=== PATIENT | male | born 1975 | race Caucasian/White ===

== ENCOUNTER → 2020-08-31 13:07 | Outpatient (BNVA) | payer OTHER, SELFPAY | PROVIDERS: PCP Internal Medicine; Visit Provider Physician Assistant Medical | DX: S93.491A Sprain of other ligament of right ankle, initial encounter (principal); W01.0XXA Fall on same level from slipping, tripping and stumbling without subsequent striking against object, initial encounter | CPT/HCPCS: 73610; 99203 ==

== ENCOUNTER → 2020-09-04 07:54 | Outpatient (BNVA) | payer OTHER, SELFPAY | PROVIDERS: PCP Internal Medicine; Visit Provider Physician Assistant Medical | DX: S93.401A Sprain of unspecified ligament of right ankle, initial encounter (principal); S83.8X1A Sprain of other specified parts of right knee, initial encounter; X58.XXXA Exposure to other specified factors, initial encounter | CPT/HCPCS: 29515; 99213 ==

== ENCOUNTER → 2020-09-07 10:30 | Outpatient (BNVA) | payer OTHER, SELFPAY | PROVIDERS: Visit Provider Physician Assistant | DX: S93.401A Sprain of unspecified ligament of right ankle, initial encounter (principal) | CPT/HCPCS: 99202 ==

== ENCOUNTER 2020-10-09 09:53 | Outpatient (REF) | payer OTHER, SELFPAY ==
--- NOTE | ~2020-10-09 | XR_ITS ---
EXAMINATION: XR ANKLE, RIGHT CLINICAL INFORMATION: Right ankle sprain. COMPARISON: None TECHNIQUE: AP, lateral, and mortise views of the right ankle. FINDINGS: Small osteophytes are noted on the posterior calcaneus at the insertion of the plantar fascia and Achilles tendon. No fracture or other acute abnormality is demonstrated. No joint effusion is demonstrated. XR/XR ankle RT min 3V IMPRESSION: No acute abnormality.
== END 2020-10-09 09:54 | disposition home or self-care (01) ==
LOC: HO.XRAY 09:53
PROVIDERS: Visit Provider Physician Assistant
DX: S93.401D Sprain of unspecified ligament of right ankle, subsequent encounter (principal)
CPT/HCPCS: 73610; 99212

== ENCOUNTER → 2021-03-25 08:58 | Outpatient (BNVA) | payer OTHER, SELFPAY | PROVIDERS: Visit Provider Internal Medicine | DX: H54.511A Low vision right eye category 1, normal vision left eye (principal) | CPT/HCPCS: 99202 ==